=== PATIENT | female | born 1965 | race American Indian/Alaskan Native ===

== ENCOUNTER 2018-11-23 06:35 | Day surgery (SDC) | payer BC ==
[2018-11-06 13:57] VITALS: BMI 34.9
[2018-11-23] MEDS ORDERED: Rocuronium 10 mg/ml (5 ml) ONE (07:32)
[2018-11-23] MEDS ORDERED: Succinylcholine 200 mg/10 ml Inj IV ONE (07:32)
[2018-11-23] MEDS ORDERED: Propofol 10 mg/ml Inj (20 ML) ONE (07:32)
[2018-11-23] MEDS ORDERED: Bupivacaine 0.5% 50 ML IJ ONE ×2 (07:45→08:02)
[2018-11-23] MEDS ORDERED: CeFAZolin 1 gm in NS 100ml IVPB ONE (07:50)
[2018-11-23] MEDS ORDERED: Desflurane Inhalation Anesthetic Liq (240 ml) ONE (08:27)
[2018-11-23] MEDS ORDERED: HYDROmorphone 0.5 mg/0.5 ml ISec IVP PRN (10:22)
[2018-11-23] MEDS ORDERED: Lactated Ringer's 1,000 ML IV SCH (10:30)
--- NOTE | 2018-11-23 10:34 | PCM.SURG1 ---
Surgeon's Initial Post Op Note - Surgeon's Notes Surgeon: Dr Phillips Heel Top Lift Splitter: Dr Jesus PGY4, Dr Patel PGY4, Brenden MS3 Type of Anesthesia: General Endo Anesthesia Administered By: Dr Wolfe Pre-Operative Diagnosis: Left Thyroid Nodule Operative Findings: palpable left thyroid nodule, pyramidal lobe cyst Post-Operative Diagnosis: as above. PRELIM FROZEN PATH: Hyperplastic colloid cells within both specimens, no evidence of malignancy within advertising representative slices Operation Performed: left thyroid lobectomy Specimen/Specimens Removed: left thyroid lobe. pyramidal lobe cyst Estimated Blood Loss: EBL {In ML}: 20 Blood Products Given: N/A Drains Used: No Drains Post-Op Condition: Good Date of Surgery/Procedure: 11/23/18 Time of Surgery/Procedure: 10:34
[2018-11-23] MEDS ORDERED: HYDROmorphone 0.5 mg/0.5 ml ISec IVP ONE ×2 (11:05→11:20)
[2018-11-23] MEDS ORDERED: HYDROmorphone 0.5 mg/0.5 ml ISec ONE ×2 (11:06→11:22)
[2018-11-23 12:06] VITALS: TEMP 97.9
[2018-11-23 13:32] VITALS: RESP 16
[2018-11-23 13:34] VITALS: BP 134/77; PULSE 68; O2SAT 97
--- NOTE | 2018-11-24 02:25 | OP ---
PROCEDURE DATE: 11/23/2018 PREOPERATIVE DIAGNOSIS: Left thyroid nodule. POSTOPERATIVE DIAGNOSIS: Left thyroid nodule. OPERATION: Left thyroid lobectomy. SURGEON: Miguel Angel Phillips MD ASSISTANTS: Clifford Jesus DO, PGY-4, Octavio Patel DO, PGY-4 ANESTHESIOLOGIST: Dr. Wolfe. ESTIMATED BLOOD LOSS: 20 mL. INDICATION FOR PROCEDURE: Left thyroid nodule. DESCRIPTION OF PROCEDURE: Informed consent was reviewed with the patient in preoperative evaluation area. The patient was brought to the operating room and placed on the operating room table in the supine position. The patient was then transorally intubated. An marking for incision was placed in a skin crease approximately one to two fingerbreadths above the clavicles. A shoulder roll was then placed. The neck was then prepped with chlorhexidine and draped in a sterile fashion. Marcaine 0.5% was used and injected into the incision line. A 15-blade was then used to make the skin incision which was carried down to the level of the platysma. Using electrocautery, the platysma was then divided down to the level of the strap muscles. Subplatysmal flaps were elevated superiorly to provide well exposure to the thyroid. The strap muscles were then split in the midline raphe. The thyroid isthmus was identified and split over the trachea. The left hemithyroidectomy was then performed retracting the strap muscles laterally, providing exposure to the superior pole of the thyroid gland. At this point, it was evident that there was a cystic structure in the pyramidal aspect of the thyroid gland. This was carefully dissected from the underlying fascia as well as thyroid gland using the harmonic and gentle traction. There were no nerves or arteries involved with the cyst and was easily delivered from the field and sent off for frozen pathology. Attention was then continued towards dissecting the superior pole of the thyroid. The superior parathyroid gland was identified and dissected away from the thyroid lobe. The gland was then retracted superiorly, inferiorly and laterally exposing the superior thyroid artery and vein. This was also taken with the harmonic. As the thyroid lobe was retracted medially, this gave evidence to median thyroid vein as well. Again, this was taken with the harmonic. Care was taken to ensure that the dissection remained as close to the posterior aspect of the thyroid capsule as possible to avoid damaging any underlying structure. Gland was then retracted superiorly and laterally, and the inferior pole was released using the same technique. The thyroid lobe was then retracted out of the surgical bed, and the remaining attachments of the thyroids were released from the trachea. The thyroid was then carefully examined, and there was no evidence of parathyroid tissue on it after removal. Examination of the surgical field demonstrated the superior parathyroid gland just posterior to where the superior pole had been released, and the inferior parathyroid gland was noted as well in the appropriate location. The left recurrent laryngeal nerve was also identified as its branch crossed down the tracheoesophageal groove. It was clear that the nerve was a significant distance away from the area of our dissection and underwent no damage. After the thyroid lobe was removed, the surgical field was evaluated for hemostasis. All bleeding was stopped using bipolar cautery. The wound was copiously irrigated with sterile saline. After this, there was no further evidence of bleeding; however, Surgicel was placed to ensure hemostasis. There was no evidence of any lymphadenopathy in level 6. Given the hemostasis, there was no need for drain placement, so using 3-0 Vicryl sutures, the fascia of the strap muscles was then reapproximated using a continuous running suture. Using interrupted 3-0 Vicryl deep stitches, the platysma was then approximated, followed by deep dermal sutures to approximate the skin. The skin was then closed using a running 4-0 Monocryl subcuticular stitch. Then, Dermabond was placed over the incision. At this point, we heard from our frozen pathologist noted that the result of the slides appeared to be hyperplastic colloid cells with no evidence of malignancy. So at this point, the procedure was deemed completed as there was no indication to remove the contralateral thyroid gland. The patient tolerated the procedure well. She was extubated from the operating room uneventfully to the postanesthesia care unit. It was noted in the postanesthesia care unit that the patient's voice was intact. Clifford Jesus DO Miguel Angel Phillips MD [facility]
== END 2018-11-23 15:20 | disposition home or self-care (01) ==
LOC: SDS 06:35
PROVIDERS: ATTEND General Practice
DX: E04.9 Nontoxic goiter, unspecified (principal); E04.1 Nontoxic single thyroid nodule; I10 Essential (primary) hypertension
CPT/HCPCS: 60220; 88307; 88331; J0131; J0330; J0690; J1170; J2001; J2704; J3010; J7120 ×2